=== PATIENT | male | born 1990 | race Two or more races ===

== ENCOUNTER 2025-09-10 08:10 | Inpatient (IN) | payer MEDICAID, OTHER ==
[~2025-09-10] VITALS: Ht 170.2 cm; Wt 116.0 kg
--- NOTE | 2025-09-10 08:38 | ED.PDOC ---
HPI (NEURO) HPI Comments 35-year-old male presents to the ED for chief complaint of right-sided numbness and weakness x 0600 today. Patient reports numbness sensation first presented at the right arm and gradually noted lower extremity becoming numb. Associating symptom includes dizziness with intermittent episodes of numbness to his lips. He mentions 3-4 months ago, he had rectal bleeding, went to the ER and was referred to see GI however never f/u with apt. Patient at this time denies any rectal bleeding. He admits to tobacco use. Chief Complaint: Right Sided Weakness Time Seen by MD: 09:23 Reviewed Notes: Nurses Notes, Medications, Allergies Mode of Arrival: Ambulatory Severity: Moderate Dizziness/Weakness Severity: Does not affect activitie Headache Severity: None Duration: Since onset Weakness Location: (R) Sided Numbness Location: Other Onset: At rest Circumstances: Spontaneous Symptoms: Numbness Associated Signs and Symptoms: Nausea, Weakness, Numbness Past Medical History PAST MEDICAL HISTORY: Denies Surgical History: Denies all surgeries Family History Family History: Reviewed,noncontributory to illness Social History Smoker: Non-Smoker Alcohol: Denies ETOH Use Drugs: Denies Drug Use Lives In: Home Constitutional: denies: chills, diaphoresis, fatigue, fever, malaise, sweats, weakness, others EENTM: denies: blurred vision, double vision, ear bleeding, ear discharge, ear drainage, ear pain, ear ringing, eye pain, eye redness, hearing loss, mouth pain, mouth swelling, nasal discharge, nose bleeding, nose congestion, nose pain, photophobia, tearing, throat pain, throat swelling, voice changes, others Respiratory: denies: cough, hemoptysis, orthopnea, SOB at rest, shortness of breath, SOB with excertion, stridor, wheezing, others Cardiovascular: denies: chest pain, dizzy spells, diaphoresis, Dyspnea on exertion, edema, irregular heart beat, left arm pain, lightheadedness, palpitations, PND, syncope, others Gastrointestinal: reports: nausea; denies: abdomen distended, abdominal pain, blood streaked bowels, constipated, diarrhea, dysphagia, difficulty swallowing, hematemesis, melena, poor appetite, poor fluid intake, rectal bleeding, rectal pain, vomiting, others Genitourinary: denies: burning, dysuria, flank pain, frequency, hematuria, incontinence, penile discharge, penile sore, pain, testicle pain, testicle swelling, urgency, others Neurological: reports: dizziness, numbness, right sided weakness, tingling; denies: fainting, headache, left sided numbness, left sided weakness, paresthesia, pre-existing deficit, right sided numbness, seizure, speech problems, tremors, weakness, others Musculoskeletal: denies: back pain, gout, joint pain, joint swelling, muscle pain, muscle stiffness, neck pain, others Integumetry: denies: bruises, change in color, change in hair/nails, dryness, laceration, lesions, lumps, rash, wounds, others Allergic/Immunocompromised: denies: Difficulty Healing, Frequent Infections, Hives, Itching, others Hematologic/Lymphatic: denies: anemia, blood clots, easy bleeding, easy bruising, swollen glands, others Endocrine: denies: excessive hunger, excessive sweating, excessive thirst, excessive urination, flushing, intolerance to cold, intolerance to heat, unexplained weight gain, unexplained weight loss, others Psychiatric: denies: anxiety, bipolar disorder, depression, hopeless, panic disorder, schizophrenia, sleepless, suicidal, others All Other Systems: Reviewed and Negative Physical Exam General Appearance: No Apparent Distress, Normal HEENT: Normal ENT Inspection, Pharynx Normal, TMs Normal Neck: Full Range of Motion, Non-Tender, Normal, Normal Inspection Respiratory: Chest Non-Tender, Lungs Clear, No Accessory Muscle Use, No Respiratory Distress, Normal Breath Sounds Cardiovascular: No Edema, No JVD, No Murmur, No Gallop, Normal Peripheral Pulses, Regular Rate/Rhythm Breast Exam: Deferred Gastrointestinal: No Organomegaly, Non Tender, No Pulsatile Mass, Normal Bowel Sounds, Soft Genitalia: Deferred Pelvic: Deferred Rectal: Deferred Extremities: No calf tenderness, Normal capillary refill, Normal inspection, Normal range of motion, Non-tender, No pedal edema Musculoskeletal : Apperance: Normal Neurologic: Other (4/5 strength right upper and right lower extremity no facial droop no slurred speech. Patient is able to ambulate. There was no drift 20 ambulate) Cerebellar Function: Normal Reflexes: Normal Skin: Dry, Normal Color, Warm Lymphatic: No Adenopathy Was a procedure done? Was a procedure done?: No Differential Diagnosis (SZ) CVA: Lee's Palsy, CVA, TIA General Weakness: Dehydration, Electrolyte imbalance, Hypovolemia, Vertigo: central, Vertigo: peripheral, Vestibular neuronitis X-Ray, Labs, Meds, VS Vital Signs Date Time Temp Pulse Resp B/P (MAP) Pulse Ox O2 Delivery O2 Flow Rate FiO2 09/10/25 10:14 71 18 100 Room Air 09/10/25 10:14 98.4 70 18 112/74 (87) 100 98.4 09/10/25 08:15 98.3 83 16 128/87 98 98.3 Lab Test 09/10/25 08:51 Range/Units White Blood Count 7.8 4.4-10.8 10^3/uL Red Blood Count 5.19 4.5-5.90 10^6/uL Hemoglobin 16.2 13.5-17.5 g/dL Hematocrit 48.5 41.0-53.0 % Mean Corpuscular Volume 93.4 80.0-100.0 fL Mean Corpuscular Hemoglobin 31.2 28.0-32.0 pg Mean Corpuscular Hemoglobin Concent 33.4 32.0-36.0 g/dL Red Cell Distribution Width 13.5 11.8-14.3 % Platelet Count 294 140-450 10^3/uL Mean Platelet Volume 7.6 6.9-10.8 fL Neutrophils (%) (Auto) 54.8 37.0-80.0 % Lymphocytes (%) (Auto) 35.9 10.0-50.0 % Monocytes (%) (Auto) 6.0 0.0-12.0 % Eosinophils (%) (Auto) 2.6 0.0-7.0 % Basophils (%) (Auto) 0.7 0.0-2.0 % Neutrophils # (Auto) 4.3 1.6-8.6 10 ^3/uL Lymphocytes # (Auto) 2.8 0.4-5.4 10 ^3/uL Monocytes # (Auto) 0.5 0-1.3 10 ^3/uL Eosinophils # (Auto) 0.2 0-0.8 10 ^3/uL Basophils # (Auto) 0.1 0-0.2 10 ^3/uL Nucleated Red Blood Cells 0.1 % Sodium Level 141 136-145 mmol/L Potassium Level 4.0 3.5-5.1 mmol/L Chloride Level 105 98-107 mmol/L Carbon Dioxide Level 26 20-31 mmol/L Anion Gap 10 5-15 Blood Urea Nitrogen 11 9-23 mg/dL Creatinine 0.81 0.700-1.30 mg/dL Glomerular Filtration Rate Calc 117 >90 mL/min BUN/Creatinine Ratio 13.6 10.0-20.0 Serum Glucose 101 74-106 mg/dL Calcium Level 9.5 8.7-10.4 mg/dL Current Medications Medications (Trade) Dose Ordered Sig/Yogesh Route Start Time Stop Time Status Last Admin Aspirin 325 mg ONCE ONCE PO 09/10/25 10:15 09/10/25 10:16 DC 09/10/25 10:22 35-year-old male presents here with right sided weakness that began at 6:00 a.m.. He states he woke up at 5:00 a.m. symptoms began approximately 1 hour after being awake. On my examination does have 4/5 strength to the right upper and right lower extremity. He is able to ambulate. No slurred speech no facial droop. Contacted [facility] neurologist spoke to her at 10:20 a.m. regarding the patient. I have ordered a CBC BMP CT scan of the brain. Per [facility] neurologist she suspects he has not be not a tPA candidate as he does not have significant symptoms. Patient has been seen by - neurologist has evaluated the patient. At this time given he does not have disabling symptoms tPA is not recommended. Family has also declined. This time CBC BMP have returned within normal limits. I have given the patient aspirin in the ER. CT scan of the brain is unremarkable for intracranial hemorrhage. At this time Dr. Catalan does recommend additional testing including a CT angio of the head and neck which I have ordered and is pending. At this time hospitalist team has been contacted for admission. X-Ray, Labs, Meds, VS Comment [address] [address] Ph: [phone] DIAGNOSTIC IMAGING Diagnostic Imaging Report : [id number] Signed PATIENT: ELAINE BRANDT ACCT: [id number] UNIT: [id number] : 1990 LOC: ER ROOM / BED: / AGE / SEX: 35 / M ADM STATUS: REG ER SERVICE 2 ORDERING PHYSICIAN: CHESTER SMALL MD PROCEDURE(s): HWOCT - HEAD WITHOUT CONTRAST REASON: TIA symptom ORDER NUMBER(s): [id number], ACCESSION NUMBER(s): [id number] CLINICAL HISTORY: TIA symptom TECHNIQUE: Helical scanning was performed of the head from the skull base to the vertex. Multiplanar reconstructions were performed. This exam was performed according to our departmental dose optimization program. Up-to-date CT equipment and radiation dose reduction techniques are utilized as appropriate. CTDI 67 DLP 1333 COMPARISON: None FINDINGS: There is no evidence for acute intracranial hemorrhage, acute ischemic changes, mass, mass effect, or extra-axial fluid collection. There is no hydrocephalus or midline shift. There is no effacement of the cerebral sulci and basal subarachnoid cisterns. The almonte-white matter differentiation is well maintained. The imaged paranasal sinuses are clear. IMPRESSION: NO ACUTE INTRACRANIAL ABNORMALITY SEEN. ATED BY: SULEMA HENDRICKS MD DICTATED DATE/TIME: 09/10/25950 SIGNED BY: SULEMA HENDRICKS MD SIGNED DATE/TIME: 09/10/25950 CC: Time of 1ST Reevaluation: 09:30 Reevaluation 1ST: Unchanged Patient Education/Counseling: Diagnosis, Treatment, Prognosis Family Education/Counseling: No Family Present Departure 1 Departure Time of Disposition: 10:26 Impression: Primary Impression: Stroke-like symptom Disposition: ADMITTED INPATIENT Condition: Fair Critical Care Note Critical Care Time?: Yes (35 min-critical care time only) Critical care comment: multiple re-evaluations of the patient, speaking to [facility] Neurology, speaking to nursing staff Stability Stability form required: No Heart Score Heart Score: Heart Score Response (Comments) Value History N/A 0 EKG N/A 0 Age N/A 0 Risk Factors N/A 0 Troponin N/A 0 Total 0 I personally scribed for CHESTER SMALL MD (DVFENAA) on 09/10/25 at 08:38. Electronically submitted by Ivon Oconnell ([facility]). I personally scribed for CHESTER SMALL MD (DVFENAA) on 09/10/25 at 08:58. Electronically submitted by Ivon Oconnell ([facility]). I personally scribed for CHESTER SMALL MD ([facility]) on 09/10/25 at 09:25. Electronically submitted by Ivon Oconnell ([facility]). I personally scribed for CHESTER SMALL MD ([facility]) on 09/10/25 at 10:16. Electronically submitted by Ivon Oconnell ([facility]). CHESTER SMALL MD Sep 10, 2025 08:38
--- NOTE | 2025-09-10 09:07 | DVH ---
CLINICAL HISTORY: Rule out pneumonia TECHNIQUE: Chest 2 views of the chest were obtained. COMPARISON: None FINDINGS: The heart size and pulmonary vasculature are normal. The lungs are clear. No pleural effusion is present. IMPRESSION: NO ACUTE CARDIOPULMONARY PROCESS.
[2025-09-10 09:13] LABS: Hematocrit 48.5 % (41.0-53.0); Hemoglobin 16.2 g/dL (13.5-17.5); Mean Corpuscular Hemoglobin 31.2 pg (28.0-32.0); Mean Corpuscular Volume 93.4 fL (80.0-100.0); Nucleated Red Blood Cells % 0.1 %
[2025-09-10 09:22] LABS: Chloride 105 mmol/L (98-107); Potassium 4.0 mmol/L (3.5-5.1); Sodium 141 mmol/L (136-145)
[2025-09-10 09:23] LABS: Anion Gap 10 (5-15); Carbon Dioxide 26 mmol/L (20-31)
[2025-09-10 09:24] LABS: Calcium 9.5 mg/dL (8.7-10.4)
[2025-09-10 09:28] LABS: Glucose 101 mg/dL (74-106)
[2025-09-10 09:29] LABS: BUN/Creatinine Ratio 13.6 (10.0-20.0); Blood Urea Nitrogen 11 mg/dL (9-23)
--- NOTE | 2025-09-10 09:53 | DVH ---
CLINICAL HISTORY: TIA symptom TECHNIQUE: Helical scanning was performed of the head from the skull base to the vertex. Multiplanar reconstructions were performed. This exam was performed according to our departmental dose optimization program. Up-to-date CT equipment and radiation dose reduction techniques are utilized as appropriate. CTDI 67 DLP 1333 COMPARISON: None FINDINGS: There is no evidence for acute intracranial hemorrhage, acute ischemic changes, mass, mass effect, or extra-axial fluid collection. There is no hydrocephalus or midline shift. There is no effacement of the cerebral sulci and basal subarachnoid cisterns. The almonte-white matter differentiation is well maintained. The imaged paranasal sinuses are clear. IMPRESSION: NO ACUTE INTRACRANIAL ABNORMALITY SEEN.
--- NOTE | 2025-09-10 11:18 | BSKYNEURO ---
[place] [facility] Note # Demographics Consult Type: Acute Stroke Level 2 (4.5-24 hrs) Patient Location: Emergency Room First Name: ELAINE Last Name: KARLY Date of : 1990 Age: 35 Gender: Male Facility: [facility] Time of Initial Page (): 09/10/2025 10:14 First Contact with Site (): 09/10/2025 10:14 # HPI Chief Complaint: - weakness (focal) History: 35 yo M p/w R arm and R leg weakness. R face also feels droopy. He is able to ambulate without assistance. No headache, no similar episode before, no neck/back pain. Last Known Normal: - I have collected independent history specific to time last normal or last known well. We have collaborated with the provider and at this time, we have the most current timeline with the information that is available. 6 AM # Scores Time of exam and NIHSS (): 09/10/2025 10:34 Level of Consciousness 1a: [0] = Alert; keenly responsive LOC Questions 1b: [0] = Answers both questions correctly LOC Commands 1c: [0] = Performs both tasks correctly Best Gaze 2: [0] = Normal Visual 3: [0] = No visual loss Facial Palsy 4: [0] = Normal symmetrical movements Motor Arm Left 5a: [0] = No drift Motor Arm Right 5b: [0] = No drift Motor Leg Left 6a: [0] = No drift Motor Leg Right 6b: [0] = No drift Limb Ataxia 7: [0] = Absent Sensory 8: [0] = Normal Best Language 9: [0] = No aphasia Dysarthria 10: [0] = Normal Extinction and Inattention 11: [0] = No abnormality NIHSS Total: 0 # Exam Motor: R arm/leg 4/5 # ROS Additional: - complete review of systems otherwise negative # Data Head CT: - no bleed # Assessment Impression: - R sided weakness Weakness Differential Diagnosis: - Ischemic Stroke (Acute) - Multiple Sclerosis # Plan Thrombolytic/Intervention: NOT IV Thrombolysis or IA Intervention candidate Thrombolytic Exclusion (< 3 hour window): - Individualized disability discussion had with the patient and/or family, and they have determined the current deficits to be non-disabling and do not wish to proceed with thrombolytic Intraarterial Exclusion: - clinical exam not consistent with presence of large vessel occlusion (LVO), ca n reconsider if LVO found on vascular imaging Imaging: (urgency: STAT): - CT Angiogram Head and CT Angiogram Neck AND call back with results if abnormal Imaging: (urgency: routine): - MRI Brain with AND without contrast Other: - If patient has any neurological deterioration please call me back immediately - would not pursue stroke work-up if MRI is negative - I have discussed my recommendations with the referring provider # Logistics Attestation of consult completion: The patient is located at: [facility]. Facility staff participated in the visit. I performed this telemedicine visit from my offsite office utilizing interactive 2 way audio and visual telecommunication technology at the request of the onsite emergency room provider. Total time spent in telemedicine encounter: I spent 19 minutes reviewing clinical data and/or imaging, obtaining history, examining the patient, communicating with the onsite care team, and in preparation of this report. # Demographics First Name: ELAINE Last Name: KARLY Facility: [facility] Electronically signed at 09/10/2025 11:17 ([place] Time) by Pascual Bray MD Yes PASCUAL BRAY MD Sep 10, 2025 11:18
[2025-09-10] MEDS ORDERED: MORPHINE SULFATE INJ 2 MG/ml SYRG IV PRN (12:15)
[2025-09-10] MEDS ORDERED: HYDROcodone-ACET 5/325MG TAB PO PRN (12:15)
[2025-09-10] MEDS ORDERED: ONDANSETRON HCL 4 MG/2 ML VIAL IV PRN (12:15)
[2025-09-10] MEDS ORDERED: ACETAMINOPHEN 325 MG TAB PO PRN (12:15)
[2025-09-10] MEDS ORDERED: DOCUSATE SOD 100 MG CAP PO PRN (12:15)
--- NOTE | 2025-09-10 12:18 | DVHHPRES ---
History of Present Illness Resident Creating Document: HUSSEIN DEL TORO RESIDENT History of Present Illness Papa Lynn , a 35-year-old current tobacco user/vapor male with no known medical or surgical history presents to the ED with right-sided numbness and weakness that began spontaneously at rest around 0600 today while he was having sexual activity with his girlfriend. Symptoms initially involved the right arm and gradually progressed to the right lower extremity. He also reports intermittent dizziness and occasional numbness of the lips. No headache noted. Associated symptoms include nausea, but he denies vision changes, speech difficulties, or chest pain. Past history is notable for rectal bleeding 34 months ago for which he was evaluated in the ER and referred to GI but did not follow up; neither he followed up with the PCP, currently denies any rectal bleeding. PMHx: Grade 3 obesity, likely hemorrhoid PSHx: None Family history: Nonsignificant, denies any mature coronary artery disease or history of stroke or bleeding or clotting disorder. Social history: Lives at home, occasional marijuana user, smoker for past 2-3 years 1 pack per day, rarely social alcohol user, denies any lifetime use of recreational drug. Medications: None Review of Systems Constitutional: No: Fever, Chills, Sweats, Weakness, Malaise, Other Eyes: No: Pain, Vision change, Conjunctivae inflammation, Eyelid inflammation, Other, Redness ENT: Other (Perioral numbness); No: Ear pain, Ear discharge, Nose pain, Nose discharge, Nose congestion, Mouth pain, Mouth swelling, Throat pain, Throat swelling Respiratory: No: Cough, Dry, Shortness of breath, SOB with excertion, Wheezing, Hemoptysis, Pleuritic Pain, Sputum, Wheezing, Other Cardiovascular: No: Chest Pain, Palpitations, Orthopnea, Paroxysmal Noc. Dyspnea, Edema, Lt Headedness, Other Gastrointestinal: No: Nausea, Vomiting, Abdominal Pain, Diarrhea, Constipation, Melena, Hematochezia, Other Genitourinary: No Dysuria, No Frequency, No Incontinence, No Hematuria, No Retention, No Other Musculoskeletal: leg pain; No: other, neck pain, shoulder pain, arm pain, back pain, hand pain, foot pain Skin: No: Rash, Lesions, Jaundice, Bruising, Other Neurological: Weakness, Numbness, Incoordination; No: Change in speech, Confusion, Seizures, Other Other Dizziness Allergies: Coded Allergies: NO KNOWN ALLERGIES (Unverified , 09/10/25) Exam Vital Signs Vital Signs Date Time Temp Pulse Resp B/P (MAP) Pulse Ox O2 Delivery O2 Flow Rate FiO2 09/10/25 10:14 71 18 100 Room Air 09/10/25 10:14 98.4 112/74 (87) 98.4 General Appearance: Alert, Oriented X3, Cooperative, No acute distress HEENT: Atraumatic, PERRLA, EOMI, Other (Dry mucosa, dehydrated,) Respiratory: Clear to auscultation, Normal air movement Cardiovascular: Regular rate, Normal S1, Normal S2, No murmurs Abdominal: Normal bowel sounds, Soft, No tenderness, No hepatospenomegaly Extremities: No clubbing, No cyanosis, No edema, Normal pulses, Other (Tenderness on the right cough) Skin: No rashes, No breakdown, No significant lesion Neuro: Normal speech, Normal tone, Sensation intact, Cranial nerves 3-12 NL, Reflexes 2+, Other (Strength on right upper arm and right lower extremity 4/5 also passive movements elicits pain) Psych/Mental Status: Mental status NL, Mood NL Labs/Xrays Labs Test 09/10/25 08:51 Range/Units White Blood Count 7.8 4.4-10.8 10^3/uL Red Blood Count 5.19 4.5-5.90 10^6/uL Hemoglobin 16.2 13.5-17.5 g/dL Hematocrit 48.5 41.0-53.0 % Mean Corpuscular Volume 93.4 80.0-100.0 fL Mean Corpuscular Hemoglobin 31.2 28.0-32.0 pg Mean Corpuscular Hemoglobin Concent 33.4 32.0-36.0 g/dL Red Cell Distribution Width 13.5 11.8-14.3 % Platelet Count 294 140-450 10^3/uL Mean Platelet Volume 7.6 6.9-10.8 fL Neutrophils (%) (Auto) 54.8 37.0-80.0 % Lymphocytes (%) (Auto) 35.9 10.0-50.0 % Monocytes (%) (Auto) 6.0 0.0-12.0 % Eosinophils (%) (Auto) 2.6 0.0-7.0 % Basophils (%) (Auto) 0.7 0.0-2.0 % Neutrophils # (Auto) 4.3 1.6-8.6 10 ^3/uL Lymphocytes # (Auto) 2.8 0.4-5.4 10 ^3/uL Monocytes # (Auto) 0.5 0-1.3 10 ^3/uL Eosinophils # (Auto) 0.2 0-0.8 10 ^3/uL Basophils # (Auto) 0.1 0-0.2 10 ^3/uL Nucleated Red Blood Cells 0.1 % Sodium Level 141 136-145 mmol/L Potassium Level 4.0 3.5-5.1 mmol/L Chloride Level 105 98-107 mmol/L Carbon Dioxide Level 26 20-31 mmol/L Anion Gap 10 5-15 Blood Urea Nitrogen 11 9-23 mg/dL Creatinine 0.81 0.700-1.30 mg/dL Glomerular Filtration Rate Calc 117 >90 mL/min BUN/Creatinine Ratio 13.6 10.0-20.0 Serum Glucose 101 74-106 mg/dL Calcium Level 9.5 8.7-10.4 mg/dL SEPSIS Sepsis Screen Date sepsis recognized/suspect: Sep 10, 2025 Time Sepsis recognized/suspect: 817 Recent Procedure: No On Antibiotic Therapy: No Respiratory Rate >20: No Heart Rate >90: No Temp<36 C (96.8 F) or >38.3 C: No SBP <90 or MAP <65 mmHG: No New Acute Mental Status Change: No Is the patient on CPAP, BIPAP,: No Physician Orders Head Without Contrast (09/10/25 08:33) Chest Two Views Routine (09/10/25 08:33) Electrocardigram (09/10/25 10:29) Electrocardigram (09/10/25 11:29) Angio Head/Neck (09/10/25 12:13) Admit (09/10/25 12:14) Allergies (09/10/25 12:14) Code Status (09/10/25 12:14) 0.9% Ns 1000 Ml (09/10/25 12:15) Oxygen Per Hour (09/10/25 12:14) Hydrocodone-Acet 5/325mg Tab (Severn 5/32 (09/10/25 12:15) Ondansetron Hcl (Zofran) (09/10/25 12:15) Docusate Sodium Capsule (Colace Capsule) (09/10/25 12:15) Complete Blood Count (09/11/25 04:00) Comprehensive Metabolic Panel (09/11/25 04:00) Npo (Nothing By Mouth) Diet (09/10/25 Lunch) Pt Request For Service (09/10/25 12:14) Echo 2d Mode Cardiac Dop (09/10/25 12:14) Carotid Duplx W Color Dop (09/10/25 12:14) Acetaminophen Tablet (Tylenol Tablet) (09/10/25 12:15) Bedrest With Bathroom Privileg (09/10/25 12:14) Morphine Sulfate Injection (09/10/25 12:15) Sequential Compression Device (09/10/25 ) Vital Signs Date Time Temp Pulse Resp B/P (MAP) Pulse Ox O2 Delivery O2 Flow Rate FiO2 09/10/25 10:14 71 18 100 Room Air 09/10/25 10:14 98.4 70 18 112/74 (87) 100 98.4 09/10/25 08:15 98.3 83 16 128/87 98 98.3 Laboratory Tests Test 09/10/25 08:51 White Blood Count 7.8 10^3/uL (4.4-10.8) Medications Medications Dose Ordered Sig/Yogesh Route Start Time Stop Time Status Last Admin Dose Admin Aspirin 325 mg ONCE ONCE PO 09/10/25 10:15 09/10/25 10:16 DC 09/10/25 10:22 325 MG Assessment/Plan Assessment/Plan Assessment and plan: # possible TIA versus ischemic stroke: Ruled out hemorrhagic stroke with CT noncontrast head, MRI pending, carotid Doppler, echo with bubble study and telemetry to check. Physical therapist consulted. Neurology on board. Continue at atorvastatin aspirin daily. Ruled out diabetes, and dyslipidemia. # right-sided weakness numbness: Fall precautions, further workup continue, MRI likely will be helpful. # right calf pain: Tenderness positive, DVT to rule out, pain control otherwise with aspirin. # grade 3 obesity: BMI more than 40, Weight loss counseling, lifestyle modification to continue. # constipation: As needed docusate to continue # prior history of hematochezia likely hemorrhoids: Patient needs to follow up with PCP, GI follow up if have recurrent symptoms. H&H stable. # Active nicotine abuse: 11 minute bedside smoking cessation counseling done. Diet: Normal diet PUD prophylaxis: protonix 40mg/not needed DVT prophylaxis: Not needed Lovenox. brisk movement. Barriers to discharge: Medical diagnosis and management in progress. PT consulted, as needed. PCP: None, career information specialist data warehouse consultant for PCP. Specialist Relevant To Admission: Neurologist, consulted on board. Case discussed with Dr. Martines. Code Status: Full Code. Discussion regarding goals of care and medical management needed total 21 minutes bedside. Patient agreed to admission to the telemetry floor. Plan discussed with: Patient My Orders Orders - HUSSEIN DEL TORO Procedure Category Date Status Time Admit ADMIT 09/10/25 Transmitted 12:14 Allergies TREE 09/10/25 Transmitted 12:14 Code Status CODE 09/10/25 Transmitted 12:14 0.9% Ns 1000 Ml PHA 09/10/25 Transmitted 12:15 Oxygen Per Hour RT 09/10/25 Transmitted 12:14 Hydrocodone-Acet PHA 09/10/25 Transmitted 5/325mg Tab (Severn 12:15 Ondansetron Hcl PHA 09/10/25 Transmitted (Zofran) 12:15 Docusate Sodium PHA 09/10/25 Transmitted Capsule (Colace 12:15 Complete Blood Count LAB 09/11/25 Verified 04:00 Comprehensive LAB 09/11/25 Verified Metabolic Panel 04:00 Npo (Nothing By DIET 09/10/25 Transmitted Mouth) Diet Lunch Pt Request For Service PT 09/10/25 Transmitted 12:14 Echo 2d Mode Cardiac US 09/10/25 Transmitted DOP 12:14 Carotid Duplx W Color US 09/10/25 Transmitted DOP 12:14 Acetaminophen Tablet PHA 09/10/25 Transmitted (Tylenol Tablet) 12:15 Bedrest With Bathroom TREE 09/10/25 Transmitted Privileg 12:14 Morphine Sulfate PHA 09/10/25 Transmitted Injection 12:15 Sequential TREE 09/10/25 Transmitted Compression Device Date of Service: Sep 10, 2025 Billing Provider: FATOU MARTINES MD Common Visit Codes: 22274-[id number] INP/OBS CARE (HIGH) Secondary Visit Codes: 61439-[id number] CARE PLAN 30 MINUTES HUSSEIN DEL TORO Sep 10, 2025 12:18
--- NOTE | 2025-09-10 12:57 | DVH ---
Carotid artery ultrasound REASON FOR EXAM: rule out obstruction/carotid stenosis CLINICAL HISTORY: rule out obstruction/carotid stenosis A Carotid Duplex Study was performed. INDICATION: rule out obstruction/carotid stenosis TECHNIQUE: Campbell scale, color doppler imaging and spectral analysis were performed. FINDINGS: On campbell scale and color imaging there is no significant plaquing present in the common carotid arteries bulbs, or internal carotid arteries Velocities are as follows: (measured in cm/S): Right CCA 147 Left CCA 106 Right ICA 98 Left ICA 82 Right ICA/CCA 0.7 Left ICA/CCA 0.8 Flow in the vertebral arteries is antegrade. IMPRESSION: 1. No hemodynamically significant stenosis based on NASCET criteria
[2025-09-10 15:15] VITALS: BP 113/62; PULSE 72; RESP 20; TEMP 98.4; O2SAT 97
[2025-09-10] MEDS: ATORVASTATIN 20 MG TAB PO ONE (15:15)
[2025-09-10 17:00] VITALS: BP_SYST 114; BP_SYST 115; BP_SYST 121; BP_DIAS 66; BP_DIAS 76; BP_DIAS 79; PULSE 66; PULSE 67; PULSE 70; RESP 20; TEMP 98.2; O2SAT 97
[2025-09-10 17:44] LABS: Alanine Aminotransferase 34.0 U/L (7-40); Albumin 4.3 g/dL (3.2-4.8); Alkaline Phosphatase 75.0 U/L (46-116); Bilirubin, Direct 0.3 mg/dL (<0.3); Bilirubin, Total 0.8 mg/dL (0.2-1.0); Total Protein 7.9 g/dL (5.7-8.2)
--- NOTE | 2025-09-10 18:03 | DVH ---
CT ANGIO HEAD/Neck INDICATION: ro stroke EXAM DATE: 09/10/2025 05:16 PM COMPARISON: CT HEAD WITHOUT CONTRAST on DOS: 09/10/25 RADIATION DOSE: CTDIvol: 28.47 mGy, DLP: 943.33 mGy*cm TECHNIQUE: CTA head and neck with intravenous contrast. 3D/MIP image postprocessing was performed and images were used for interpretation and reporting. All CT scans at this medical facility are performed using dose modulation techniques as appropriate to a performed exam including the following: Automated exposure control was utilized; adjustment of the MA and/or KV according to patient size; and use of iterative reconstruction technique. FINDINGS: Evaluation is mildly degraded by motion and streak artifact. The caliber and course of the distal internal carotid arteries is unremarkable. No evidence of high-grade stenosis or occlusion of the proximal branch vessels of the [place]. The basilar artery is patent. The intracranial segments of the bilateral vertebral arteries are unremarkable in caliber. No evidence of large aneurysm or arteriovenous malformation. The visualized thoracic aortic arch and proximal great vessels are unremarkable. The left common, internal and external carotid arteries are within normal limits. The right common, internal and external carotid arteries are within normal limits. The cervical segments of the right and left vertebral arteries are within normal limits. The limited visualized lung apices are clear. The surrounding soft tissues and osseous structures are otherwise unremarkable. IMPRESSION: 1. No large vessel occlusion. No evidence of hemodynamically significant cervical stenosis or dissection.
[2025-09-10] MEDS: SODIUM CHLORIDE 0.9% 1,000 ML IV SCH (18:05)
[2025-09-10 18:45] LABS: COVID19 ANTIGEN SOFIA FIA NEGATIVE (NEGATIVE)
--- NOTE | 2025-09-10 19:52 | DVH ---
Bilateral lower extremity venous duplex Clinical History: r/o DVT Comparison: None Technique: Duplex Doppler evaluation of the deep venous systems of both lower extremities from the common femoral veins to the popliteal veins including color Doppler and spectral/pulsed waveform analysis was performed. Findings: RIGHT SIDE: The common femoral vein demonstrates appropriate compressibility and waveform variability. There is compressibility/patency of the great saphenous vein at the proximal thigh. The femoral vein demonstrates appropriate compressibility and waveform variability. The deep femoral vein demonstrates appropriate compressibility and waveform variability. The popliteal vein demonstrates appropriate compressibility and waveform variability. There is normal compressibility at the tibioperoneal trunk. LEFT SIDE: The common femoral vein demonstrates appropriate compressibility and waveform variability. There is compressibility/patency of the great saphenous vein at the proximal thigh. The femoral vein demonstrates appropriate compressibility and waveform variability. The deep femoral vein demonstrates appropriate compressibility and waveform variability. The popliteal vein demonstrates appropriate compressibility and waveform variability. There is normal compressibility at the tibioperoneal trunk. Impression: 1. No right or left femoropopliteal venous thrombosis.
[2025-09-10 20:13] LABS: Cannabinoid Screen, Urine Pos (NEGATIVE)
[2025-09-10] MEDS: PANTOPRAZOLE 40 MG/10 ML VIAL INJ IV ONE (20:13)
[2025-09-10 20:15] LABS: Amphetamine Screen, Urine Neg (NEGATIVE); Barbiturate Scree,Urine Neg (NEGATIVE); Benzodiazephine Screen, Urine Neg (NEGATIVE); Cocaine Screen, Urine Neg (NEGATIVE); Opiate Scree,Urine Neg (NEGATIVE); Phencyclidine Screen, Urine Neg (NEGATIVE); Urine Protein, UAD TRACE (Negative)
[2025-09-10 20:43] VITALS: BP 106/68; PULSE 62; RESP 16; TEMP 97.7
[2025-09-10] MEDS: ATORVASTATIN 20 MG TAB PO SCH (21:05)
[2025-09-11] VITALS (8 sets, daily range): BP systolic 103–118; BP diastolic 62–79; PULSE 63–93; RESP 12–18; TEMP 97–98.2; O2SAT 96–97
[2025-09-11 06:21] LABS: Hematocrit 43.3 % (41.0-53.0); Hemoglobin 14.6 g/dL (13.5-17.5); Mean Corpuscular Hemoglobin 31.5 pg (28.0-32.0); Mean Corpuscular Volume 92.9 fL (80.0-100.0); Nucleated Red Blood Cells % 0.1 %
[2025-09-11 06:32] LABS: Alanine Aminotransferase 27 U/L (7-40); Alkaline Phosphatase 70 U/L (46-116); Anion Gap 10 (5-15); BUN/Creatinine Ratio 21.1 (10.0-20.0); Blood Urea Nitrogen 16 mg/dL (9-23); Calcium 8.8 mg/dL (8.7-10.4); Carbon Dioxide 26 mmol/L (20-31); Chloride 105 mmol/L (98-107); Lipase 32 U/L (12-53); Potassium 4.2 mmol/L (3.5-5.1); Sodium 141 mmol/L (136-145); Total Protein 6.7 g/dL (5.7-8.2)
[2025-09-11 06:33] LABS: Albumin 3.7 g/dL (3.2-4.8); Bilirubin, Total 0.6 mg/dL (0.2-1.0)
[2025-09-11 06:39] LABS: Glucose 118 mg/dL (74-106)
--- NOTE | 2025-09-11 09:07 | DVH ---
PROCEDURE: MRI OF THE BRAIN WITHOUT CONTRAST. CLINICAL INDICATION: r/o ischemic stroke TECHNIQUE: Multiplanar, multi sequence MRI of the brain was performed without intravenous contrast. COMPARISON: CT ANGIO HEAD/NECK on DOS: 09/10/25, CT HEAD WITHOUT CONTRAST on DOS: 09/10/25 FINDINGS: The signal characteristics of the brain parenchyma is within normal limits. There are no areas of restricted diffusion to suggest acute infarct. No evidence of space occupying mass lesion, extra-axial collections or hemorrhage is noted. The ventricles, sulci and basal cisterns are intact. There is no signal abnormality in the posterior fossa. The paranasal sinuses and mastoid air cells are well pneumatized. The orbits and nasopharynx are intact. The osseous structures are intact. The vessels of the skull base demonstrate signal void consistent with patency. IMPRESSION: 1. No acute intracranial abnormality.
[2025-09-11 11:11] LABS: Magnesium 2.1 mg/dL (1.6-2.6)
[2025-09-11 11:13] LABS: Cholesterol 146.0 mg/dL (< 200)
[2025-09-11 11:14] LABS: HDL Cholesterol 29.0 mg/dL (40-59); Triglycerides 151.0 mg/dL (< 150)
[2025-09-11] MEDS: PANTOPRAZOLE 40 MG/10 ML VIAL INJ IV SCH (11:18)
--- NOTE | 2025-09-11 11:52 | DVHSR ---
APPROVED REPORT EXAM: LIMITED Two-dimensional and M-mode echocardiogram with Doppler and color Doppler. Blood Pressure: 113/68 mmHg INDICATION R/O Structural Heart Disease RISK FACTORS Obesity: Height: 5' 7", Weight: 255 DIMENSIONS LVDd 4.3 (3.8-5.7cm) LA (2D) 3.7 (1.9-4.0cm) Aortic Root 3.3 (2.0-3.7cm) LVDs 3.0 (2.5-4.0cm) LA (MM) (1.9-4.0cm) Aortic Cusp Exc 1.9 (1.5-2.0cm) EF (%) 57.0 (55-70%) Rt. Atrium 3.9 (1.9-4.0cm) Asc. Aorta cm IVSd 0.9 (0.7-1.1cm) RV (D) (1.8-2.4cm) PWd 1.0 (0.7-1.1cm) Mitral Valve Mitral Mitral Stenosis E wave 1.00m/s MV Mean GR. mmHg A wave 0.70m/s MV Peak GR. mmHg E/A ratio 1.4 2D MVA cm2 Aortic Valve Aortic Valve Aortic Stenosis V1 1.10m/s AO Mean GR. 4mmHg V2 1.30m/s AO Peak GR. 7mmHg LVOT Diameter 2.2 (1.8-2.4cm) Doppler JOSE E 3.21cm2 Other Information Quality : Technically Limited Rhythm : Technically limited study due to body habitus. Conclusion 1)Normal right and left ventricle systolic function with estimated ejection fraction of 55-60%. Normal LV wall motion. Normal LV diastolic function 2)No significant valvular pathology was seen
--- NOTE | 2025-09-11 13:31 | ECG ---
[facility] Test Date: 2025-09-11 Test Time: 10:56:02 Pat Name: ELAINE BRANDT Department: Respiratoy Room: 0249T B Gender: M Occupational Health Manager: : 1990 Requested By: CHESTER SMALL Order Number: [id number] Reading MD: Remy Lyn Measurements Intervals [place] Rate: 67 P: 59 CT: 171 QRS: 70 QRSD: 100 T: 23 QT: 390 QTc: 412 Interpretive Statements Sinus rhythm Abnormal R-wave progression, early transition Inferior infarct, old Electronically Signed On 09-15-2025 18:25:46 PST by Remy Lyn Please click the below link to view image of tracing.
[2025-09-11] MEDS ORDERED: ASPI-325 PO (15:21)
[2025-09-11] MEDS ORDERED: ACET-1882 PO (15:21)
[2025-09-11] MEDS ORDERED: ERGO1CAP23 PO (15:21)
[2025-09-11] MEDS ORDERED: ATOR20TA50 PO (15:21)
--- NOTE | 2025-09-11 15:22 | DVHDSRES ---
Discharge Summary Date of Admission Resident Creating Document: SHILOH AGUILAR RESIDENT Sep 10, 2025 at 12:14 Date of Discharge: Sep 11, 2025 Labs/Diagnostic Data: Laboratory Results Test 09/11/25 04:55 09/10/25 19:19 09/10/25 18:46 09/10/25 17:57 White Blood Count 8.8 10^3/uL (4.4-10.8) Red Blood Count 4.66 10^6/uL (4.5-5.90) Hemoglobin 14.6 g/dL (13.5-17.5) Hematocrit 43.3 % (41.0-53.0) Mean Corpuscular Volume 92.9 fL (80.0-100.0) Mean Corpuscular Hemoglobin 31.5 pg (28.0-32.0) Mean Corpuscular Hemoglobin Concent 33.9 g/dL (32.0-36.0) Red Cell Distribution Width 13.4 % (11.8-14.3) Platelet Count 259 10^3/uL (140-450) Mean Platelet Volume 7.9 fL (6.9-10.8) Neutrophils (%) (Auto) 48.8 % (37.0-80.0) Lymphocytes (%) (Auto) 42.2 % (10.0-50.0) Monocytes (%) (Auto) 5.0 % (0.0-12.0) Eosinophils (%) (Auto) 3.3 % (0.0-7.0) Basophils (%) (Auto) 0.7 % (0.0-2.0) Neutrophils # (Auto) 4.3 10 ^3/uL (1.6-8.6) Lymphocytes # (Auto) 3.7 10 ^3/uL (0.4-5.4) Monocytes # (Auto) 0.4 10 ^3/uL (0-1.3) Eosinophils # (Auto) 0.3 10 ^3/uL (0-0.8) Basophils # (Auto) 0.1 10 ^3/uL (0-0.2) Nucleated Red Blood Cells 0.1 % Sodium Level 141 mmol/L (136-145) Potassium Level 4.2 mmol/L (3.5-5.1) Chloride Level 105 mmol/L (98-107) Carbon Dioxide Level 26 mmol/L (20-31) Anion Gap 10 (5-15) Blood Urea Nitrogen 16 mg/dL (9-23) Creatinine 0.76 mg/dL (0.700-1.30) Glomerular Filtration Rate Calc 119 mL/min (>90) BUN/Creatinine Ratio 21.1 (10.0-20.0) Serum Glucose 118 mg/dL (74-106) Calcium Level 8.8 mg/dL (8.7-10.4) Phosphorus Level 4.0 mg/dL (2.4-5.1) Magnesium Level 2.1 mg/dL (1.6-2.6) Total Bilirubin 0.6 mg/dL (0.2-1.0) Aspartate Amino Transferase (AST) 23 U/L (13-40) Alanine Aminotransferase (ALT) 27 U/L (7-40) Alkaline Phosphatase 70 U/L (46-116) Total Protein 6.7 g/dL (5.7-8.2) Albumin 3.7 g/dL (3.2-4.8) Triglycerides Level 151 mg/dL (< 150) Cholesterol Level 146 mg/dL (< 200) LDL Cholesterol 112 mg/dL (< 100) HDL Cholesterol 29 mg/dL (40-59) Lipase 32 U/L (12-53) Vitamin B12 Level 311 pg/mL (211-911) Vitamin D 25-Hydroxy 24.1 ng/mL (30.0-100) Thyroid Stimulating Hormone (TSH) 0.86 uIU/mL (0.55-4.78) D-Dimer, Quantitative < 0.19 mg/L FEU (0.0-0.49) Urine Color Light-yellow (Yellow) Urine Clarity Clear (Clear) Urine pH 7.0 (5.0-9.0) Urine Specific [place] > 1.050 (1.001-1.035) Urine Protein Trace (Negative) Urine Ketones Negative (Negative) Urine Blood Negative /uL (Negative) Urine Nitrite Negative (Negative) Urine Bilirubin Negative (Negative) Urine Urobilinogen Normal mg/dL (Negative) Urine Leukocyte Esterase Negative /uL (Negative) Urine RBC None seen /hpf (0 - 3) Urine Microscopic WBC < 1 /HPF (0-3) Urine Squamous Epithelial Cells None seen /hpf (<5) Urine Bacteria None seen /hpf (None Seen) Urine Glucose Normal mg/dL (Normal) Urine Opiates Screen Neg (NEGATIVE) Urine Fentanyl Screen Neg (NEGATIVE) Urine Barbiturates Screen Neg (NEGATIVE) Urine Phencyclidine Screen Neg (NEGATIVE) Urine Amphetamines Screen Neg (NEGATIVE) Urine Benzodiazepines Screen Neg (NEGATIVE) Urine Cocaine Screen Neg (NEGATIVE) Urine Cannabinoids Screen Pos (NEGATIVE) Influenza Type A Antigen Negative (Negative) Influenza Type B Antigen Negative (Negative) SARS-CoV-2 Antigen (Rapid) Negative (NEGATIVE) Test 09/10/25 08:51 Hemoglobin A1c 5.4 % A1C (<5.7) Direct Bilirubin 0.3 mg/dL (<0.3) Other Laboratory Tests 09/11/25 04:55 Brief Hx & Hospital Course: Papa Lynn is a 35-year-old male patient who presents to the ED with chief complaint of right-sided body numbness, he reports started on the right hand and right face then radiated towards the rest of his right upper extremity and right lower extremity, associated with dizziness when standing, intermittent orthopnea nausea and nonbloody vomiting of food content emesis, which all started on 09/10/2025 at 6:00 a.m. whenever after waking up, went to the emergency department at 7:30 a.m. for further evaluation. Patient reports having sexual activity with girlfriend when waking up, before onset of symptoms. Denies any other associated symptoms or any consumption of drugs. Past medical history: Morbid obesity, hemorrhoids Surgical history: Left wrist surgery repair after traumatic fracture Family history: Mother's side has diabetes and hypertension Social history: Lives in [place] with family (next of kin mother and father). History of tobacco abuse (approximately one pack-year history of smoking) he currently vapes for the past four months. He does consume marijuana actively, per patient his last time consuming was one week ago. Denies alcohol and other drug abuse. Allergies: Denies Home medication: Denies Brief hospital course likely toxic encephalopathy secondary to marijuana abuse versus Cervical radiculopathy, ruling out on admission CVA, evaluated by Teleneurology recommended no thrombolytic therapy, ordered complementary workup which was within normal limits (head CT and MRI negative for stroke, angio CT of neck and head negative and carotid ultrasound with no significant stenosis). Telemetry monitoring showed no significant arrhythmias, echocardiogram was within normal limits (LVEF 55-60%). Orthostatic vital signs were within normal limits. Patient presented mild abnormalities in laboratory including positive UDS for cannabinoids, and newly diagnosed dyslipidemia (triglycerides 151, total cholesterol 146, LDL 112, HDL 29) and vitamin-D deficiency, indicating medical treatment as outpatient. Patient during hospital course continue with mild numbness in dorsum of forearm, in context of negative brain complementary to workup, suspect Cervical radiculopathy, to follow up with Neurology as outpatient (he will be discharged with aspirin atorvastatin, but unlikely to present TIA due to persistent symptoms with negative brain MRI). Completed during hospitalization lower limb venous ultrasound which ruled out DVT. Patient hemodynamically stable, asymptomatic, in condition to be discharged home. Was granted under optimal medical therapy (aspirin, atorvastatin, vitamin-D), gave advice on healthy lifestyle habits, and follow up with discharge Clinic, PCP and Neurology. DIAGNOSIS Questionable toxic encephalopathy Questionable cervical radiculopathy Unlikely TIA Ruled out ischemic stroke Morbid obesity History of hemorrhoids Newly diagnosed dyslipidemia Newly diagnosed vitamin-D deficiency Active nicotine abuse (vaping) Cannabinoid abuse Goals of care discussed with patient for over 18 minutes: Full code status Discussed plan with Dr. Christian, patient and nurses. Operations or Procedures EXAM: LIMITED Two-dimensional and M-mode echocardiogram with Doppler and color Doppler. Blood Pressure: 113/68 mmHg INDICATION R/O Structural Heart Disease RISK FACTORS Obesity: Height: 5' 7", Weight: 255 DIMENSIONS LVDd 4.3 (3.8-5.7cm) LA (2D) 3.7 (1.9-4.0cm) Aortic Root 3.3 (2.0- 3.7cm) LVDs 3.0 (2.5-4.0cm) LA (MM) (1.9-4.0cm) Aortic Cusp Exc 1.9 (1.5- 2.0cm) EF (%) 57.0 (55-70%) Rt. Atrium 3.9 (1.9-4.0cm) Asc. Aorta cm IVSd 0.9 (0.7-1.1cm) RV (D) (1.8-2.4cm) PWd 1.0 (0.7-1.1cm) Mitral Valve Mitral Mitral Stenosis E wave 1.00m/s MV Mean GR. mmHg A wave 0.70m/s MV Peak GR. mmHg E/A ratio 1.4 2D MVA cm2 Aortic Valve Aortic Valve Aortic Stenosis V1 1.10m/s AO Mean GR. 4mmHg V2 1.30m/s AO Peak GR. 7mmHg LVOT Diameter 2.2 (1.8-2.4cm) Doppler JOSE E 3.21cm2 Other Information Quality : Technically Limited Rhythm : Technically limited study due to body habitus. Conclusion 1)Normal right and left ventricle systolic function with estimated ejection fraction of 55-60%. Normal LV wall motion. Normal LV diastolic function 2)No significant valvular pathology was seen SIGNED BY: MARCIN MG MD SIGNED DATE/TIME: 09/11/25 1152 ORDERING PHYSICIAN: CHESTER SMALL MD PROCEDURE(s): CXR2 - CHEST TWO VIEWS ROUTINE REASON: Rule out pneumonia ORDER NUMBER(s): [id number], ACCESSION NUMBER(s): [id number] CLINICAL HISTORY: Rule out pneumonia TECHNIQUE: Chest 2 views of the chest were obtained. COMPARISON: None FINDINGS: The heart size and pulmonary vasculature are normal. The lungs are clear. No pleural effusion is present. IMPRESSION: NO ACUTE CARDIOPULMONARY PROCESS. ATED BY: SULEMA HENDRICKS MD DICTATED DATE/TIME: 09/10/25 0904 ORDERING PHYSICIAN: CHESTER SMALL MD PROCEDURE(s): HWOCT - HEAD WITHOUT CONTRAST REASON: TIA symptom ORDER NUMBER(s): [id number], ACCESSION NUMBER(s): [id number] CLINICAL HISTORY: TIA symptom TECHNIQUE: Helical scanning was performed of the head from the skull base to the vertex. Multiplanar reconstructions were performed. This exam was performed according to our departmental dose optimization program. Up-to-date CT equipment and radiation dose reduction techniques are utilized as appropriate. CTDI 67 DLP 1333 COMPARISON: None FINDINGS: There is no evidence for acute intracranial hemorrhage, acute ischemic changes, mass, mass effect, or extra-axial fluid collection. There is no hydrocephalus or midline shift. There is no effacement of the cerebral sulci and basal subarachnoid cisterns. The campbell-white matter differentiation is well maintained. The imaged paranasal sinuses are clear. IMPRESSION: NO ACUTE INTRACRANIAL ABNORMALITY SEEN. ATED BY: SULEMA HENDRICKS MD DICTATED DATE/TIME: 09/10/[address] ANGIO HEAD/Neck INDICATION: ro stroke EXAM DATE: 09/10/2025 05:16 PM COMPARISON: CT HEAD WITHOUT CONTRAST on DOS: 09/10/25 RADIATION DOSE: CTDIvol: 28.47 mGy, DLP: 943.33 mGy*cm TECHNIQUE: CTA head and neck with intravenous contrast. 3D/MIP image postprocessing was performed and images were used for interpretation and reporting. All CT scans at this medical facility are performed using dose modulation techniques as appropriate to a performed exam including the following: Automated exposure control was utilized; adjustment of the MA and/or KV according to patient size; and use of iterative reconstruction technique. FINDINGS: Evaluation is mildly degraded by motion and streak artifact. The caliber and course of the distal internal carotid arteries is unremarkable. No evidence of high-grade stenosis or occlusion of the proximal branch vessels of the [place]. The basilar artery is patent. The intracranial segments of the bilateral vertebral arteries are unremarkable in caliber. No evidence of large aneurysm or arteriovenous malformation. The visualized thoracic aortic arch and proximal great vessels are unremarkable. The left common, internal and external carotid arteries are within normal limits. The right common, internal and external carotid arteries are within normal limits. The cervical segments of the right and left vertebral arteries are within normal limits. The limited visualized lung apices are clear. The surrounding soft tissues and osseous structures are otherwise unremarkable. IMPRESSION: 1. No large vessel occlusion. No evidence of hemodynamically significant cervical stenosis or dissection. ATED BY: MARTI BOLAÑOS MD DICTATED DATE/TIME: 09/10/25 1800 ORDERING PHYSICIAN: HUSSEIN DEL TORO RESIDENT PROCEDURE(s): CARCL - CAROTID DUPLX W COLOR DOP REASON: rule out obstruction/carotid stenosis ORDER NUMBER(s): [id number], ACCESSION NUMBER(s): [id number] Carotid artery ultrasound REASON FOR EXAM: rule out obstruction/carotid stenosis CLINICAL HISTORY: rule out obstruction/carotid stenosis A Carotid Duplex Study was performed. INDICATION: rule out obstruction/carotid stenosis TECHNIQUE: Campbell scale, color doppler imaging and spectral analysis were performed. FINDINGS: On campbell scale and color imaging there is no significant plaquing present in the common carotid arteries bulbs, or internal carotid arteries Velocities are as follows: (measured in cm/S): Right CCA 147 Left CCA 106 Right ICA 98 Left ICA 82 Right ICA/CCA 0.7 Left ICA/CCA 0.8 Flow in the vertebral arteries is antegrade. IMPRESSION: 1. No hemodynamically significant stenosis based on NASCET criteria ATED BY: MACO KENDALL MD DICTATED DATE/TIME: 09/10/25 1254 Bilateral lower extremity venous duplex Clinical History: r/o DVT Comparison: None Technique: Duplex Doppler evaluation of the deep venous systems of both lower extremities from the common femoral veins to the popliteal veins including color Doppler and spectral/pulsed waveform analysis was performed. Findings: RIGHT SIDE: The common femoral vein demonstrates appropriate compressibility and waveform variability. There is compressibility/patency of the great saphenous vein at the proximal thigh. The femoral vein demonstrates appropriate compressibility and waveform variability. The deep femoral vein demonstrates appropriate compressibility and waveform variability. The popliteal vein demonstrates appropriate compressibility and waveform variability. There is normal compressibility at the tibioperoneal trunk. LEFT SIDE: The common femoral vein demonstrates appropriate compressibility and waveform variability. There is compressibility/patency of the great saphenous vein at the proximal thigh. The femoral vein demonstrates appropriate compressibility and waveform variability. The deep femoral vein demonstrates appropriate compressibility and waveform variability. The popliteal vein demonstrates appropriate compressibility and waveform variability. There is normal compressibility at the tibioperoneal trunk. Impression: 1. No right or left femoropopliteal venous thrombosis. ATED BY: MACO CASTANEDA Jr., DO DICTATED DATE/TIME: 09/10/25 194 PROCEDURE: MRI OF THE BRAIN WITHOUT CONTRAST. CLINICAL INDICATION: r/o ischemic stroke TECHNIQUE: Multiplanar, multi sequence MRI of the brain was performed without intravenous contrast. COMPARISON: CT ANGIO HEAD/NECK on DOS: 09/10/25, CT HEAD WITHOUT CONTRAST on DOS: 09/10/25 FINDINGS: The signal characteristics of the brain parenchyma is within normal limits. There are no areas of restricted diffusion to suggest acute infarct. No evidence of space occupying mass lesion, extra-axial collections or hemorrhage is noted. The ventricles, sulci and basal cisterns are intact. There is no signal abnormality in the posterior fossa. The paranasal sinuses and mastoid air cells are well pneumatized. The orbits and nasopharynx are intact. The osseous structures are intact. The vessels of the skull base demonstrate signal void consistent with patency. IMPRESSION: 1. No acute intracranial abnormality. ATED BY: MARCELA SALAMANCA MD DICTATED DATE/TIME: 09/11/25903 Condition at Discharge: Stable Final Diagnosis/Problems List Questionable toxic encephalopathy Questionable cervical radiculopathy Unlikely TIA Ruled out ischemic stroke Morbid obesity History of hemorrhoids Newly diagnosed dyslipidemia Newly diagnosed vitamin-D deficiency Active nicotine abuse (vaping) Cannabinoid abuse Discharge Disposition: Home SNF Discharge Will this Physician continue t: No Discharge Instruct/Medications Diet: Cardiac 2g Na,low cholest Activity: No Restrictions, As Tolerated Follow Up/Referral: PCP Neurology Medications: Per HPI Scheduled Aspirin (Aspirin Low Dose), 81 MG PO DAILY Atorvastatin Calcium (Atorvastatin Calcium), 40 MG PO HS Ergocalciferol (Vitamin D 27303 Unit), 50,000 UNIT PO QWEEKLY Scheduled PRN Acetaminophen (Acetaminophen), 650 MG PO Q6HP PRN Discharge Statement: "Patient was advised to return to the ER or call 911 if any headaches, dizziness, shortness of breath, chest pain, abdominal pain, bleeding, fevers, or worsening of medical condition. Patient was counseled about treatment plan, medications, possible side effects, patientverbalized understanding. All questions were answered to the best of my ability. This discharge took greater then 30 minutes in planning, reviewing documentation, counseling the patient, and discussing with other team members." ASSESSMENT ASSESSMENT Assessment Toxic encephalopathy Visit Coding STANDARD RES Billing Provider: USER,TEST CNM Date of Service if different f: Sep 11, 2025 Common Visit Codes: [id number] INP/OBS CARE(HIGH) Secondary Visit Codes: [id number] CARE PLAN 30 MINUTES SHILOH AGUILAR RESIDENT Sep 11, 2025 15:22
== END 2025-09-11 18:55 | disposition home or self-care (01) | DRG 48 ==
LOC: ER 08:10 → OVERFLOW 12:14 → TELE-EAST 23:50
PROVIDERS: ADMIT Student in an Organized Health Care Education/Training Program; ATTEND Emergency Medicine
DX: M54.12 Radiculopathy, cervical region (principal); G92.8 Other toxic encephalopathy; E66.813 Obesity, class 3; Z20.822 Contact with and (suspected) exposure to COVID-19; T40.711A Poisoning by cannabis, accidental (unintentional), initial encounter; K59.00 Constipation, unspecified; E78.5 Hyperlipidemia, unspecified; E55.9 Vitamin D deficiency, unspecified; Z68.41 Body mass index [BMI] 40.0-44.9, adult; Z71.6 Tobacco abuse counseling; Y92.89 Other specified places as the place of occurrence of the external cause
CPT/HCPCS: 36415; 70450; 70496; 70498; 70551; 71046; 80048; 80053; 80061; 80076; 80307; 81001; 82306; 82607; 83036; 83690; 83735; 84100; 84443; 85025; 85379; 87426; 87804; 93005; 93306; 93886; 93970; 97163; 99291; G0378; J2470